=== PATIENT | male | born 1980 | race Caucasian/White ===

== ENCOUNTER 2018-08-27 11:11 | Inpatient (IN) | payer SELFPAY ==
[~2018-08-27] VITALS: Ht 170.2 cm; Wt 81.6 kg
--- NOTE | 2018-08-27 12:35 | PHYS DOC ---
Past Medical History Past Medical History: No Pertinent History Past Surgical History: No Surgical History Alcohol Use: None Drug Use: Marijuana Adult General Chief Complaint Chief Complaint: LOWER EXTREMITY SWELLING HPI HPI Patient is a 38 year old male who presents with history woke with right foot swelling and redness and pain that is stabbing in nature and then when he awoke this morning his left foot is now beginning to have swelling and some redness with tenderness and pain. Patient denies numbness or tingling. He takes no medications daily and receiving 8 out of 10. Review of Systems Review of Systems Constitutional: Denies fever or chills [] Eyes: Denies change in visual acuity, redness, or eye pain [] HENT: Denies nasal congestion or sore throat [] Respiratory: Denies cough or shortness of breath [] Cardiovascular: No additional information not addressed in HPI [] GI: Denies abdominal pain, nausea, vomiting, bloody stools or diarrhea [] : Denies dysuria or hematuria [] Musculoskeletal: Bilateral lower extremity swelling and redness. Denies back pain or joint pain [] Integument: Denies rash or skin lesions [] Neurologic: Denies headache, focal weakness or sensory changes [] All other systems were reviewed and found to be within normal limits, except as documented in this note. Current Medications Current Medications Current Medications Medications (Trade) Dose Ordered Sig/Aman Start Time Stop Time Status Last Admin Dose Admin Acetaminophen (Tylenol) 650 mg PRN Q4HRS PRN 08/27/18 15:45 UNV Albuterol Sulfate (Ventolin Neb Soln) 2.5 mg PRN Q4HRS PRN 08/27/18 15:45 UNV Ceftriaxone Sodium (Rocephin) 1 gm 1X ONCE 08/27/18 15:30 08/27/18 15:31 DC Clonidine HCl (Catapres) 0.1 mg PRN Q6HRS PRN 08/27/18 15:45 UNV Diphenhydramine HCl (Benadryl) 25 mg PRN Q4HRS PRN 08/27/18 15:45 UNV Docusate Sodium (Colace) 100 mg PRN BID PRN 08/27/18 15:45 UNV Enoxaparin Sodium (Lovenox 40mg Syringe) 40 mg DAILY 08/28/18 09:00 UNV Fentanyl Citrate (Fentanyl 2ml Vial) 50 mcg PRN Q1HR PRN 08/27/18 15:30 08/28/18 15:29 Ketorolac Tromethamine (Toradol 30mg Vial) 30 mg Q8H PRN 08/27/18 15:45 09/01/18 15:44 UNV Lorazepam (Ativan) 0.5 mg PRN Q4HRS PRN 08/27/18 15:45 UNV Ondansetron HCl (Zofran) 4 mg PRN Q4HRS PRN 08/27/18 15:45 UNV Piperacillin Sod/ Tazobactam Sod 3.375 gm/Sodium Chloride 50 ml @ 100 mls/hr Q8HRS 08/27/18 22:00 UNV Sodium Monofluorophosphate (Fleet Adult) 133 ml PRN DAILY PRN 08/27/18 15:45 UNV Vancomycin HCl (Vanco Per Pharmacy) 1 each PRN DAILY PRN 08/27/18 15:45 UNV Vancomycin HCl 1 gm/Dextrose 250 ml @ 250 mls/hr 1X ONCE 08/27/18 15:45 08/27/18 16:44 UNV Vancomycin HCl 2 gm/Sodium Chloride 500 ml @ 250 mls/hr 1X ONCE 08/27/18 16:00 08/27/18 17:59 Zolpidem Tartrate (Ambien) 5 mg PRN QHS PRN 08/27/18 15:45 UNV Allergies Allergies Allergies Coded Allergies Type Severity Reaction Last Updated Verified No Known Drug Allergies 08/27/18 No Physical Exam Physical Exam Constitutional: Well developed, well nourished, no acute distress, non-toxic appearance. [] HENT: Normocephalic, atraumatic, bilateral external ears normal, oropharynx moist, no oral exudates, nose normal. [] Eyes: PERRLA, EOMI, conjunctiva normal, no discharge. [] Neck: Normal range of motion, no tenderness, supple, no stridor. [] Cardiovascular:Heart rate regular rhythm, no murmur [] Lungs & Thorax: Bilateral breath sounds clear to auscultation [] Abdomen: Bowel sounds normal, soft, no tenderness, no masses, no pulsatile masses. [] Skin: Warm, dry, no erythema, no rash. [] Back: No tenderness, no CVA tenderness. [] Extremities: Bilateral lower pedal tenderness, no cyanosis, no clubbing, ROM intact, bilateral lower pedal edema. [] Neurologic: Alert and oriented X 3, normal motor function, normal sensory function, no focal deficits noted. [] Psychologic: Affect normal, judgement normal, mood normal. [] Current Patient Data Vital Signs Vital Signs Date Time Temp Pulse Resp B/P (MAP) Pulse Ox O2 Delivery O2 Flow Rate FiO2 08/27/18 14:56 80 123/65 (84) 96 Room Air 08/27/18 11:43 98.7 18 98.7 Lab Values Laboratory Tests Test 08/27/18 12:58 08/27/18 14:18 White Blood Count 12.7 x10^3/uL (4.0-11.0) H Red Blood Count 4.60 x10^6/uL (4.30-5.70) Hemoglobin 13.7 g/dL (13.0-17.5) Hematocrit 41.0 % (39.0-53.0) Mean Corpuscular Volume 89 fL (79-100) Mean Corpuscular Hemoglobin 30 pg (25-35) Mean Corpuscular Hemoglobin Concent 33 g/dL (31-37) Red Cell Distribution Width 13.3 % (11.5-14.5) Platelet Count 263 x10^3/uL (140-400) Neutrophils (%) (Auto) 74 % (31-73) H Lymphocytes (%) (Auto) 18 % (24-48) L Monocytes (%) (Auto) 7 % (0-9) Eosinophils (%) (Auto) 1 % (0-3) Basophils (%) (Auto) 0 % (0-3) Neutrophils # (Auto) 9.3 x10^3uL (1.8-7.7) H Lymphocytes # (Auto) 2.3 x10^3/uL (1.0-4.8) Monocytes # (Auto) 0.9 x10^3/uL (0.0-1.1) Eosinophils # (Auto) 0.1 x10^3/uL (0.0-0.7) Basophils # (Auto) 0.1 x10^3/uL (0.0-0.2) Sodium Level 140 mmol/L (136-145) Potassium Level 3.6 mmol/L (3.5-5.1) Chloride Level 100 mmol/L (98-107) Carbon Dioxide Level 32 mmol/L (21-32) Anion Gap 8 (6-14) Blood Urea Nitrogen 13 mg/dL (8-26) Creatinine 0.9 mg/dL (0.7-1.3) Estimated GFR (Cockcroft-Gault) 94.4 BUN/Creatinine Ratio 14 (6-20) Glucose Level 95 mg/dL (70-99) Lactic Acid Level 0.8 mmol/L (0.4-2.0) Calcium Level 9.4 mg/dL (8.5-10.1) Total Bilirubin 0.3 mg/dL (0.2-1.0) Aspartate Amino Transferase (AST) 16 U/L (15-37) Alanine Aminotransferase (ALT) 20 U/L (16-63) Alkaline Phosphatase 95 U/L (46-116) WO-Wsi-C-Type Natriuretic Peptide 8 pg/mL (0-124) Total Protein 8.2 g/dL (6.4-8.2) Albumin 3.9 g/dL (3.4-5.0) Albumin/Globulin Ratio 0.9 (1.0-1.7) L Urine Collection Type Unknown Urine Color Yellow Urine Clarity Cloudy Urine pH 7.0 Urine Specific [place] 1.010 Urine Protein Negative mg/dL (NEG-TRACE) Urine Glucose (UA) Negative mg/dL (NEG) Urine Ketones (Stick) Negative mg/dL (NEG) Urine Blood Trace (NEG) Urine Nitrite Negative (NEG) Urine Bilirubin Negative (NEG) Urine Urobilinogen Dipstick 0.2 mg/dL (0.2 mg/dL) Urine Leukocyte Esterase Moderate (NEG) Urine RBC 1-2 /HPF (0-2) Urine WBC >40 /HPF (0-4) Urine Bacteria Few /HPF (0-FEW) Urine Mucus Slight /LPF Urine Opiates Screen Neg (NEG) Urine Methadone Screen Neg (NEG) Urine Barbiturates Neg (NEG) Urine Phencyclidine Screen Neg (NEG) Urine Amphetamine/Methamphetamine Pos (NEG) Urine Benzodiazepines Screen Neg (NEG) Urine Cocaine Screen Neg (NEG) Urine Cannabinoids Screen Pos (NEG) Urine Ethyl Alcohol Neg (NEG) Laboratory Tests 08/27/18 12:58 Laboratory Tests 08/27/18 12:58 EKG EKG [] Radiology/Procedures Radiology/Procedures [] Impressions: [facility] [id number] [place] [address] IMAGING REPORT Signed PATIENT: HALEY KEMP ACCOUNT: [id number] : 1980 LOCATION: ER AGE: 38 SEX: M EXAM STATUS: REG ER ORD. PHYSICIAN: RICKY MAHAN APRN REASON: pain, swelling, redness PROCEDURE: FOOT BILAT 3V 3 views of each foot 08/27/2018 12:36 PM Indication: bilateral feet redness and swelling, no injury Comparison: None Findings: There is no acute fracture or dislocation. Articular surfaces are uninterrupted. Soft tissue edema is noted about the mid and distal foot, right greater than left. Impression: Soft tissue edema involving the bilateral feet as described without evidence of acute osseous abnormality. Electronically signed by: Alonso Stone MD (08/27/2018 1:00 PM) [id number] DICTATED and SIGNED BY: ALONSO STONE MD DATE: 08/27/[id number] [id number] IMAGING REPORT Signed PATIENT: HALEY KEMP ACCOUNT: [id number] : 1980 LOCATION: ER AGE: 38 SEX: M EXAM STATUS: REG ER ORD. PHYSICIAN: RICKY MAHAN APRN REASON: pain, swelling and redness PROCEDURE: VENOUS LOWER EXT BILATERAL Bilateral lower extremity venous ultrasound HISTORY: Bilateral leg pain, swelling and redness. TECHNIQUE: Grayscale, color Doppler and spectral waveform analysis. FINDINGS: Right and left lower extremity femoral-popliteal veins appear patent with normal compressibility and response to augmentation. Visualized calf veins are patent. IMPRESSION: Negative for right or left leg deep venous sclerosis. Electronically signed by: Jose Ulrich MD (08/27/2018 1:22 PM) [id number] DICTATED and SIGNED BY: JOSE ULRICH MD DATE: 08/27/18 1321 Course & Med Decision Making Course & Med Decision Making Patient is a 38 year old male who presents with history woke with right foot swelling and redness and pain that is stabbing in nature and then when he awoke this morning his left foot is now beginning to have swelling and some redness with tenderness and pain. Patient denies numbness or tingling. He takes no medications daily and receiving 8 out of 10. Alert and oriented. Skin pink warm and dry. Lungs clear to auscultation all lobes. Vital signs are within normal limits. Patient's right foot is 2-3+ edema and is red and warm to touch. It is also tender to touch. Left foot is 1-2+ edema with redness starting is also tender to touch. I can feel a slight pulse in this foot Refill is less than 3 seconds. The right foot because of swelling at cannot feel a pulse but a Refill is less than 3 seconds. Have ordered Doppler ultrasound for both lower extremities and x-rays. It is membranes are moist. Heart regular without murmur. Patient denies any past medical history and he states he takes no medications and states he did not take any pain medications today. 1325: Bilateral feet x-ray and bilateral lower extremity ultrasound shows no acute findings. Blood work is unremarkable besides white blood cell count is 12.7. Urine shows urinary tract infection and is positive for marijuana and methamphetamines. I have asked the patient about methamphetamines and acetaminophen he had been using a needle to inject methamphetamine and any veins in his foot and he states now he does not like needles. Patient and ex are in agreement to stay for antibiotics. 1533: I have spoken to Dr Gamez for admission. Latha Disclaimer Latha Disclaimer This electronic medical record was generated, in whole or in part, using a voice recognition dictation system. Departure Departure Impression: Primary Impression: Cellulitis Disposition: ADMITTED INPATIENT Admitting Physician: Other Condition: STABLE Referrals: NO PCP (PCP) Problem Qualifiers Primary Impression: Cellulitis Site of cellulitis: extremity Site of cellulitis of extremity: lower extremity Laterality: right Qualified Codes: L03.115 - Cellulitis of right lower limb RICKY MAHAN APRN Aug 27, 2018 12:35
--- NOTE | 2018-08-27 13:03 | RAD ---
3 views of each foot 08/27/2018 12:36 PM Indication: bilateral feet redness and swelling, no injury Comparison: None Findings: There is no acute fracture or dislocation. Articular surfaces are uninterrupted. Soft tissue edema is noted about the mid and distal foot, right greater than left. Impression: Soft tissue edema involving the bilateral feet as described without evidence of acute osseous abnormality. Electronically signed by: Alonso Powell MD (08/27/2018 1:00 PM) [id number]
[2018-08-27 13:17] LABS: BASO # 0.1 x10^3/uL (0.0-0.2); BASO % 0 % (0-3); EOS # 0.1 x10^3/uL (0.0-0.7); EOS % 1 % (0-3); HEMOGLOBIN 13.7 g/dL (13.0-17.5); LYMPH # 2.3 x10^3/uL (1.0-4.8); LYMPH % 18 % (24-48); MEAN CORPUSCULAR HEMOGLOBIN 30 pg (25-35); MEAN CORPUSCULAR HGB CONC 33 g/dL (31-37); MEAN CORPUSCULAR VOLUME 89 fL (79-100); MONO # 0.9 x10^3/uL (0.0-1.1); MONO % 7 % (0-9); NEUT # 9.3 x10^3uL (1.8-7.7); NEUT % 74 % (31-73); PLATELET COUNT 263 x10^3/uL (140-400); RED CELL DISTRIBUTION WIDTH 13.3 % (11.5-14.5); WHITE BLOOD COUNT 12.7 x10^3/uL (4.0-11.0)
[2018-08-27 13:18] LABS: CALCIUM 9.4 mg/dL (8.5-10.1); CREATININE 0.9 mg/dL (0.7-1.3); GFR 94.4; POTASSIUM 3.6 mmol/L (3.5-5.1)
[2018-08-27 13:23] LABS: ALBUMIN 3.9 g/dL (3.4-5.0); ALBUMIN/GLOBULIN RATIO 0.9 (1.0-1.7); TOTAL BILIRUBIN 0.3 mg/dL (0.2-1.0); TOTAL PROTEIN 8.2 g/dL (6.4-8.2)
--- NOTE | 2018-08-27 13:25 | RAD ---
Bilateral lower extremity venous ultrasound HISTORY: Bilateral leg pain, swelling and redness. TECHNIQUE: Grayscale, color Doppler and spectral waveform analysis. FINDINGS: Right and left lower extremity femoral-popliteal veins appear patent with normal compressibility and response to augmentation. Visualized calf veins are patent. IMPRESSION: Negative for right or left leg deep venous sclerosis. Electronically signed by: Jose Ulrich MD (08/27/2018 1:22 PM) [id number]
[2018-08-27] MEDS ORDERED: fentaNYL PF VIAL 100 MCG/2 ML VIAL IV ONE (13:30)
[2018-08-27 14:25] LABS: BILIRUBIN,URINE NEGATIVE (NEG); CLARITY,URINE CLOUDY; COLOR,URINE YELLOW; NITRITE,URINE NEGATIVE (NEG); PROTEIN,URINE NEGATIVE (NEG-TRACE); UROBILINOGEN,URINE 0.2 mg/dL (0.2 mg/dL)
[2018-08-27 14:33] LABS: AMPHETAMINE/METHAMPHETAMINE POS (NEG); BARBITURATES NEG (NEG); BENZODIAZEPINES NEG (NEG); CANNABINOIDS POS (NEG); COCAINE NEG (NEG); METHADONE NEG (NEG); OPIATES NEG (NEG); PHENCYCLIDINE NEG (NEG)
[2018-08-27 14:51] LABS: BACTERIA,URINE FEW /HPF (0-FEW); WBC,URINE >40 /HPF (0-4)
[2018-08-27] MEDS ORDERED: VANCOMYCIN PER PHARMACY MC PRN ×2 (15:30→15:45)
[2018-08-27] MEDS ORDERED: cefTRIAXone IV Push 1 GM VIAL. IVP ONE (15:30)
[2018-08-27] MEDS ORDERED: ONDANSETRON PF 4 MG/2 ML VIAL. IV PRN ×2 (15:30→15:45)
[2018-08-27] MEDS ORDERED: ACETAMINOPHEN 325 MG TABLET. PO PRN ×2 (15:30→15:45)
[2018-08-27] MEDS ORDERED: fentaNYL PF VIAL 100 MCG/2 ML VIAL IV PRN (15:30)
[2018-08-27] MEDS ORDERED: diphenhydrAMINE 50 MG/ML VIAL IVP PRN (15:45)
[2018-08-27] MEDS ORDERED: cloNIDine HCL 0.1 MG TABLET PO PRN (15:45)
[2018-08-27] MEDS ORDERED: DOCUSATE SODIUM 100 MG CAPSULE. PO PRN (15:45)
[2018-08-27] MEDS ORDERED: KETOROLAC 30 MG/ML VIAL. IV PRN (15:45)
[2018-08-27] MEDS ORDERED: SODIUM PHOSPHATES 19/7GM 133 ML ENEMA. PR PRN (15:45)
[2018-08-27] MEDS ORDERED: ZOLPIDEM 5 MG TABLET. PO PRN (15:45)
[2018-08-27] MEDS ORDERED: ALBUTEROL SULFATE 2.5 MG/3 ML NEBU. NEB PRN (15:45)
[2018-08-27] MEDS ORDERED: LORazepam 0.5 MG TABLET PO PRN (15:45)
[2018-08-27] MEDS ORDERED: VANCOMYCIN 1 GM in IV DEXTROSE 5% 250 ML IV ONE (15:45)
[2018-08-27] MEDS ORDERED: VANCOMYCIN 2 GM in IV NORMAL SALINE 500ML BAG 500 ML IV ONE (16:00)
[2018-08-27 17:13] VITALS: BP 113/80
--- NOTE | 2018-08-27 17:40 | PDOC1 ---
History and Physical Date of Admission Date of Admission 08/27/2018 Identification/Chief Complaint Chief Complaint My foot hurts Source Source: Chart review, Patient History of Present Illness History of Present Illness Patient is a 38 year old male with no past medical history fwhoi was evluated in the ER sand found to have a right foot cellulitis, patient denies history of trauma no recent changes to his shoes, history is somewhat limited since thue patient is a very poor historyian and his ex is in the room as well. Unable to assess if the patient has used IV drugs as a point of entry, he has positive UDP for amphetamines and marihuana. History is limited due to the presence of his ex at bedside. Patient denies fever chills no recent illness, no sick contacts, he does not have animals at home, He denies travels outside the area or overseas. Patient at the time of my interview is in no apparent distress, plan of care explained in detail I have answered all concerns to the best of my abilities. Discussed findings on work up done in the ED including imaging studies done ER note Patient is a 38 year old male who presents with history woke with right foot swelling and redness and pain that is stabbing in nature and then when he awoke this morning his left foot is now beginning to have swelling and some redness with tenderness and pain. Patient denies numbness or tingling. He takes no medications daily and receiving 8 out of 10. Alert and oriented. Skin pink warm and dry. Lungs clear to auscultation all lobes. Vital signs are within normal limits. Patient's right foot is 2-3+ edema and is red and warm to touch. It is also tender to touch. Left foot is 1-2+ edema with redness starting is also tender to touch. I can feel a slight pulse in this foot Refill is less than 3 seconds. The right foot because of swelling at cannot feel a pulse but a Refill is less than 3 seconds. Have ordered Doppler ultrasound for both lower extremities and x-rays. It is membranes are moist. Heart regular without murmur. Patient denies any past medical history and he states he takes no medications and states he did not take any pain medications today. 1325: Bilateral feet x-ray and bilateral lower extremity ultrasound shows no acute findings. Blood work is unremarkable besides white blood cell count is 12.7. Urine shows urinary tract infection and is positive for marijuana and methamphetamines. I have asked the patient about methamphetamines and acetaminophen he had been using a needle to inject methamphetamine and any veins in his foot and he states now he does not like needles. Patient and ex are in agreement to stay for antibiotics. 1533: I have spoken to Dr Johnson for admission. Past Medical History Cardiovascular: No pertinent hx Pulmonary: No pertinent hx GI: No pertinent hx Heme/Onc: No pertinent hx Hepatobiliary: No pertinent hx Psych: No pertinent hx Rheumatologic: No pertinent hx Infectious disease: No pertinent hx ENT: No pertinent hx Renal/: No pertinent hx Endocrine: No pertinent hx Dermatology: No pertinent hx Past Surgical History Past Surgical History: No pertinent history Family History Family History: Coronary Artery Disease Family History: Parent Social History Smoke: No ALCOHOL: none Drugs: Marijuana, Crystal meth Current Problem List Problem List Problems Medical Problems: (1) Cellulitis Status: Acute Current Medications Current Medications Current Medications Medications (Trade) Dose Ordered Sig/Aman Start Time Stop Time Status Last Admin Dose Admin Acetaminophen (Tylenol) 650 mg PRN Q4HRS PRN 08/27/18 15:45 Albuterol Sulfate (Ventolin Neb Soln) 2.5 mg PRN Q4HRS PRN 08/27/18 15:45 Ceftriaxone Sodium (Rocephin) 1 gm 1X ONCE 08/27/18 15:30 08/27/18 15:31 DC 08/27/18 15:58 1 GM Clonidine HCl (Catapres) 0.1 mg PRN Q6HRS PRN 08/27/18 15:45 Diphenhydramine HCl (Benadryl) 25 mg PRN Q4HRS PRN 08/27/18 15:45 Docusate Sodium (Colace) 100 mg PRN BID PRN 08/27/18 15:45 Enoxaparin Sodium (Lovenox 40mg Syringe) 40 mg DAILY 08/28/18 09:00 Fentanyl Citrate (Fentanyl 2ml Vial) 50 mcg PRN Q1HR PRN 08/27/18 15:30 08/28/18 15:29 Ketorolac Tromethamine (Toradol 30mg Vial) 30 mg PRN Q8HRS PRN 08/27/18 15:45 09/01/18 15:44 Lorazepam (Ativan) 0.5 mg PRN Q4HRS PRN 08/27/18 15:45 Ondansetron HCl (Zofran) 4 mg PRN Q4HRS PRN 08/27/18 15:45 Piperacillin Sod/ Tazobactam Sod 3.375 gm/Sodium Chloride 50 ml @ 100 mls/hr Q8HRS 08/27/18 22:00 Sodium Monofluorophosphate (Fleet Adult) 133 ml PRN DAILY PRN 08/27/18 15:45 Vancomycin HCl (Vanco Per Pharmacy) 1 each PRN DAILY PRN 08/27/18 15:45 Vancomycin HCl 1 gm/Dextrose 250 ml @ 250 mls/hr 1X ONCE 08/27/18 15:45 08/27/18 16:08 DC Vancomycin HCl 2 gm/Sodium Chloride 500 ml @ 250 mls/hr 1X ONCE 08/27/18 16:00 08/27/18 17:59 08/27/18 15:59 250 MLS/HR Zolpidem Tartrate (Ambien) 5 mg PRN QHS PRN 08/27/18 15:45 Allergies Allergies Allergies Coded Allergies Type Severity Reaction Last Updated Verified No Known Drug Allergies 08/27/18 No ROS Review of System CONSTITUTIONAL: No fever or chills EYES: No recent changes SKIN: No rash or itching CARDIOVASCULAR: No chest pain, syncope, palpitations, or edema RESPIRATORY: No SOB or cough GASTROINTESTINAL: No nausea, vomiting or abdominal pain NEUROLOGICAL: No headaches or weakness ENDOCRINE: No cold or heat intolerance GENITOURINARY: No urgency or frequency of urination MUSCULOSKELETAL: No back pain or joint pain LYMPHATICS: No enlarged lymph nodes PSYCHIATRIC: No anxiety or depression Physical Exam Physical Exam GEN.: No apparent distress. Alert and oriented. HEENT: Head is normocephalic, atraumatic NECK: Supple. LUNGS: Clear to auscultation. HEART: RRR, S1, S2 present. Peripheral pulses intact ABDOMEN: Soft, nontender. Positive bowel sounds. EXTREMITIES: Without any cyanosis. NEUROLOGIC: Normal speech, normal tone PSYCHIATRIC: Normal affect, normal mood. SKIN: No ulcerations, erythema over the right and left lower extremity at the level of the ankle, 1+ edema Vitals Vitals Vital Signs Date Time Temp Pulse Resp B/P (MAP) Pulse Ox O2 Delivery O2 Flow Rate FiO2 08/27/18 17:13 98.0 80 18 113/80 (91) 98 Room Air 98.0 Labs Labs Laboratory Tests Test 08/27/18 12:58 08/27/18 14:18 White Blood Count 12.7 x10^3/uL (4.0-11.0) Red Blood Count 4.60 x10^6/uL (4.30-5.70) Hemoglobin 13.7 g/dL (13.0-17.5) Hematocrit 41.0 % (39.0-53.0) Mean Corpuscular Volume 89 fL (79-100) Mean Corpuscular Hemoglobin 30 pg (25-35) Mean Corpuscular Hemoglobin Concent 33 g/dL (31-37) Red Cell Distribution Width 13.3 % (11.5-14.5) Platelet Count 263 x10^3/uL (140-400) Neutrophils (%) (Auto) 74 % (31-73) Lymphocytes (%) (Auto) 18 % (24-48) Monocytes (%) (Auto) 7 % (0-9) Eosinophils (%) (Auto) 1 % (0-3) Basophils (%) (Auto) 0 % (0-3) Neutrophils # (Auto) 9.3 x10^3uL (1.8-7.7) Lymphocytes # (Auto) 2.3 x10^3/uL (1.0-4.8) Monocytes # (Auto) 0.9 x10^3/uL (0.0-1.1) Eosinophils # (Auto) 0.1 x10^3/uL (0.0-0.7) Basophils # (Auto) 0.1 x10^3/uL (0.0-0.2) Sodium Level 140 mmol/L (136-145) Potassium Level 3.6 mmol/L (3.5-5.1) Chloride Level 100 mmol/L (98-107) Carbon Dioxide Level 32 mmol/L (21-32) Anion Gap 8 (6-14) Blood Urea Nitrogen 13 mg/dL (8-26) Creatinine 0.9 mg/dL (0.7-1.3) Estimated GFR (Cockcroft-Gault) 94.4 BUN/Creatinine Ratio 14 (6-20) Glucose Level 95 mg/dL (70-99) Lactic Acid Level 0.8 mmol/L (0.4-2.0) Calcium Level 9.4 mg/dL (8.5-10.1) Total Bilirubin 0.3 mg/dL (0.2-1.0) Aspartate Amino Transf (AST/SGOT) 16 U/L (15-37) Alanine Aminotransferase (ALT/SGPT) 20 U/L (16-63) Alkaline Phosphatase 95 U/L (46-116) QC-Hdd-I-Type Natriuretic Peptide 8 pg/mL (0-124) Total Protein 8.2 g/dL (6.4-8.2) Albumin 3.9 g/dL (3.4-5.0) Albumin/Globulin Ratio 0.9 (1.0-1.7) Urine Collection Type Unknown Urine Color Yellow Urine Clarity Cloudy Urine pH 7.0 Urine Specific [place] 1.010 Urine Protein Negative mg/dL (NEG-TRACE) Urine Glucose (UA) Negative mg/dL (NEG) Urine Ketones (Stick) Negative mg/dL (NEG) Urine Blood Trace (NEG) Urine Nitrite Negative (NEG) Urine Bilirubin Negative (NEG) Urine Urobilinogen Dipstick 0.2 mg/dL (0.2 mg/dL) Urine Leukocyte Esterase Moderate (NEG) Urine RBC 1-2 /HPF (0-2) Urine WBC >40 /HPF (0-4) Urine Bacteria Few /HPF (0-FEW) Urine Mucus Slight /LPF Urine Opiates Screen Neg (NEG) Urine Methadone Screen Neg (NEG) Urine Barbiturates Neg (NEG) Urine Phencyclidine Screen Neg (NEG) Urine Amphetamine/Methamphetamine Pos (NEG) Urine Benzodiazepines Screen Neg (NEG) Urine Cocaine Screen Neg (NEG) Urine Cannabinoids Screen Pos (NEG) Urine Ethyl Alcohol Neg (NEG) Laboratory Tests Test 08/27/18 12:58 08/27/18 14:18 White Blood Count 12.7 x10^3/uL (4.0-11.0) Red Blood Count 4.60 x10^6/uL (4.30-5.70) Hemoglobin 13.7 g/dL (13.0-17.5) Hematocrit 41.0 % (39.0-53.0) Mean Corpuscular Volume 89 fL (79-100) Mean Corpuscular Hemoglobin 30 pg (25-35) Mean Corpuscular Hemoglobin Concent 33 g/dL (31-37) Red Cell Distribution Width 13.3 % (11.5-14.5) Platelet Count 263 x10^3/uL (140-400) Neutrophils (%) (Auto) 74 % (31-73) Lymphocytes (%) (Auto) 18 % (24-48) Monocytes (%) (Auto) 7 % (0-9) Eosinophils (%) (Auto) 1 % (0-3) Basophils (%) (Auto) 0 % (0-3) Neutrophils # (Auto) 9.3 x10^3uL (1.8-7.7) Lymphocytes # (Auto) 2.3 x10^3/uL (1.0-4.8) Monocytes # (Auto) 0.9 x10^3/uL (0.0-1.1) Eosinophils # (Auto) 0.1 x10^3/uL (0.0-0.7) Basophils # (Auto) 0.1 x10^3/uL (0.0-0.2) Sodium Level 140 mmol/L (136-145) Potassium Level 3.6 mmol/L (3.5-5.1) Chloride Level 100 mmol/L (98-107) Carbon Dioxide Level 32 mmol/L (21-32) Anion Gap 8 (6-14) Blood Urea Nitrogen 13 mg/dL (8-26) Creatinine 0.9 mg/dL (0.7-1.3) Estimated GFR (Cockcroft-Gault) 94.4 BUN/Creatinine Ratio 14 (6-20) Glucose Level 95 mg/dL (70-99) Lactic Acid Level 0.8 mmol/L (0.4-2.0) Calcium Level 9.4 mg/dL (8.5-10.1) Total Bilirubin 0.3 mg/dL (0.2-1.0) Aspartate Amino Transf (AST/SGOT) 16 U/L (15-37) Alanine Aminotransferase (ALT/SGPT) 20 U/L (16-63) Alkaline Phosphatase 95 U/L (46-116) JE-Qgy-G-Type Natriuretic Peptide 8 pg/mL (0-124) Total Protein 8.2 g/dL (6.4-8.2) Albumin 3.9 g/dL (3.4-5.0) Albumin/Globulin Ratio 0.9 (1.0-1.7) Urine Collection Type Unknown Urine Color Yellow Urine Clarity Cloudy Urine pH 7.0 Urine Specific [place] 1.010 Urine Protein Negative mg/dL (NEG-TRACE) Urine Glucose (UA) Negative mg/dL (NEG) Urine Ketones (Stick) Negative mg/dL (NEG) Urine Blood Trace (NEG) Urine Nitrite Negative (NEG) Urine Bilirubin Negative (NEG) Urine Urobilinogen Dipstick 0.2 mg/dL (0.2 mg/dL) Urine Leukocyte Esterase Moderate (NEG) Urine RBC 1-2 /HPF (0-2) Urine WBC >40 /HPF (0-4) Urine Bacteria Few /HPF (0-FEW) Urine Mucus Slight /LPF Urine Opiates Screen Neg (NEG) Urine Methadone Screen Neg (NEG) Urine Barbiturates Neg (NEG) Urine Phencyclidine Screen Neg (NEG) Urine Amphetamine/Methamphetamine Pos (NEG) Urine Benzodiazepines Screen Neg (NEG) Urine Cocaine Screen Neg (NEG) Urine Cannabinoids Screen Pos (NEG) Urine Ethyl Alcohol Neg (NEG) Images Images PATIENT: HALEY KEMP ACCOUNT: [id number] : 1980 LOCATION: ER AGE: 38 SEX: M EXAM STATUS: REG ER ORD. PHYSICIAN: RICKY MAHAN APRN REASON: pain, swelling and redness PROCEDURE: VENOUS LOWER EXT BILATERAL Bilateral lower extremity venous ultrasound HISTORY: Bilateral leg pain, swelling and redness. TECHNIQUE: Grayscale, color Doppler and spectral waveform analysis. FINDINGS: Right and left lower extremity femoral-popliteal veins appear patent with normal compressibility and response to augmentation. Visualized calf veins are patent. IMPRESSION: Negative for right or left leg deep venous sclerosis. Electronically signed by: Jose Ulrich MD (08/27/2018 1:22 PM) [facility] DICTATED and SIGNED BY: JOSE ULRICH MD DATE: 08/27/18 1321 Signed PATIENT: HALEY KEMP ACCOUNT: [id number] : 1980 LOCATION: ER AGE: 38 SEX: M EXAM STATUS: REG ER ORD. PHYSICIAN: BAFUS,RICKY M EXHAUST MACHINE OPERATOR REASON: pain, swelling, redness PROCEDURE: FOOT BILAT 3V 3 views of each foot 08/27/2018 12:36 PM Indication: bilateral feet redness and swelling, no injury Comparison: None Findings: There is no acute fracture or dislocation. Articular surfaces are uninterrupted. Soft tissue edema is noted about the mid and distal foot, right greater than left. Impression: Soft tissue edema involving the bilateral feet as described without evidence of acute osseous abnormality. Electronically signed by: Alonso Stone MD (08/27/2018 1:00 PM) [facility] DICTATED and SIGNED BY: ALONSO STONE MD DATE: 08/27/18 1258 VTE Prophylaxis Ordered VTE Prophylaxis Devices: No VTE Pharmacological Prophylaxi: Yes Assessment/Plan Assessment/Plan Bilateral lower extremity cellulitis Leukocytosis due to the above Polysubstance abuse Plan: broad spectrum antibiotics will do MRSA screen reassess in the am labs in am further recommendations based on clinical course. TIARA JOHNSON MD Aug 27, 2018 17:40
--- NOTE | 2018-08-27 18:26 | NUR ---
Pharmacy Vancomycin Dosing Note S:Consulted to monitor and dose vancomycin started 08/27/18. O:VIRIDIANAHALEY is a 38 year old M with Cellulitis . Height: 5 feet, 7 inches Weight: 81.015621 kg [place] Body Weight: 66.10 Adjusted Body Weight: 72.30 Dosing Weight: Actual Other Antibiotics: Zosyn LABS: Last BUN: 13 Last Creatinine: 0.9 Creatinine Clearance: 113.8 mL/min Last WBC: 12.7 Last Procalcitonin: Tmax (past 24 hours): 98.7 Microbiology: I/O: Drug Levels: Last level: on at Last dose given 08/27/18 at 1559 Vancomycin Dosing: Loading Dose: 2000 mg x1 Dosing Weight: Actual Target Trough: 10-20 A: Based on weight and est. CrCl: P: 1. Vancomycin 2000mg, followed by Vancomycin 1250 mg IV q8h. 2. Follow up Trough level on 08/28/18 at 1530. 3. Pharmacy will continue to monitor, follow and adjust therapy as needed. Zbigniew Shook [facility], 08/27/18 1590
[2018-08-27 19:00] VITALS: BP 124/67
--- NOTE | 2018-08-27 20:36 | NUR ---
Pt. came up from ED on bed. Pt. transferred to unit bed and made comfortable. came up to see pt. This nurse oriented pt. to unit activities, hospital policies, and room. Head to toe assessment and admission interventions completed. Pt. stated that he wanted to be a DNR. This nurse talked through with pt. what this means and In the pt. own words he said "my time is up". This nurse checked with pt. again before calling the Dr. and pt. stated "if it is my time, then it is my time." Dr. Gamez was paged and spoke with this nurse. Orders were received and placed in the computer. Will continue to monitor pt.
[2018-08-27] MEDS: PIPERACILLIN/TAZOBACTAM 3.375 GM in IV NORMAL SALINE 50ML 50 ML IV SCH (22:21)
[2018-08-27 23:00] VITALS: BP 113/62
[2018-08-28] MEDS ORDERED: VANCOMYCIN 1.25 GM in IV NORMAL SALINE 250ML 250 ML IV SCH ×2
[2018-08-28 03:00] VITALS: BP 105/65
[2018-08-28] MEDS: PIPERACILLIN/TAZOBACTAM 3.375 GM in IV NORMAL SALINE 50ML 50 ML IV SCH (06:18)
[2018-08-28 07:00] VITALS: BP 113/60
[2018-08-28] MEDS ORDERED: ENOXAPARIN 40 MG/0.4 ML SYRINGE. SQ SCH (09:00)
[2018-08-28] MEDS ORDERED: DOXYCYCLINE HYCLATE 100 MG TABLET PO SCH (09:00)
[2018-08-28] MEDS ORDERED: CEFDINIR 300 MG CAPSULE PO SCH (09:00)
[2018-08-28] MEDS ORDERED: NICOTINE 21MG PATCH. TD SCH (09:00)
--- NOTE | 2018-08-28 10:59 | NUR ---
SW following. Discussed with RN, pt is self pay. PAT team consulted for positive drug test of Meth and Marijuana. SW will continue to follow. RN notified.
--- NOTE | 2018-08-28 12:42 | NUR ---
SW following. PAT team met with pt, pt denied Meth use, uses Marijuana regularly for anxiety. PAT team gave resources for [facility] and [facility]. SW met with pt to give self pay resources, pt denied any further SW needs. RN notified.
[2018-08-28 15:04] VITALS: BP 99/56
[2018-08-28] MEDS ORDERED: LACT1CAP19 PO (16:57)
[2018-08-28] MEDS ORDERED: DOXY100T PO (16:57)
[2018-08-28] MEDS ORDERED: CEFD300C PO (16:57)
--- NOTE | 2018-08-28 17:17 | PDOC3 ---
Discharge Summary Visit Information Date of Admission: Aug 27, 2018 Date of Discharge: Aug 28, 2018 Admitting Diagnosis: cellulitis Final Diagnosis Bilateral lower extremity cellulitis Polysubstance abuse tobaccon abuse Brief Hospital Course Allergies Allergies Coded Allergies Type Severity Reaction Last Updated Verified No Known Drug Allergies 08/27/18 No Vital Signs Vital Signs Date Time Temp Pulse Resp B/P (MAP) Pulse Ox O2 Delivery O2 Flow Rate FiO2 08/28/18 15:04 98.1 93 16 99/56 (70) 93 Room Air 98.1 Lab Results Laboratory Tests Test 08/27/18 12:58 08/27/18 14:18 White Blood Count 12.7 x10^3/uL (4.0-11.0) Red Blood Count 4.60 x10^6/uL (4.30-5.70) Hemoglobin 13.7 g/dL (13.0-17.5) Hematocrit 41.0 % (39.0-53.0) Mean Corpuscular Volume 89 fL (79-100) Mean Corpuscular Hemoglobin 30 pg (25-35) Mean Corpuscular Hemoglobin Concent 33 g/dL (31-37) Red Cell Distribution Width 13.3 % (11.5-14.5) Platelet Count 263 x10^3/uL (140-400) Neutrophils (%) (Auto) 74 % (31-73) Lymphocytes (%) (Auto) 18 % (24-48) Monocytes (%) (Auto) 7 % (0-9) Eosinophils (%) (Auto) 1 % (0-3) Basophils (%) (Auto) 0 % (0-3) Neutrophils # (Auto) 9.3 x10^3uL (1.8-7.7) Lymphocytes # (Auto) 2.3 x10^3/uL (1.0-4.8) Monocytes # (Auto) 0.9 x10^3/uL (0.0-1.1) Eosinophils # (Auto) 0.1 x10^3/uL (0.0-0.7) Basophils # (Auto) 0.1 x10^3/uL (0.0-0.2) Sodium Level 140 mmol/L (136-145) Potassium Level 3.6 mmol/L (3.5-5.1) Chloride Level 100 mmol/L (98-107) Carbon Dioxide Level 32 mmol/L (21-32) Anion Gap 8 (6-14) Blood Urea Nitrogen 13 mg/dL (8-26) Creatinine 0.9 mg/dL (0.7-1.3) Estimated GFR (Cockcroft-Gault) 94.4 BUN/Creatinine Ratio 14 (6-20) Glucose Level 95 mg/dL (70-99) Lactic Acid Level 0.8 mmol/L (0.4-2.0) Calcium Level 9.4 mg/dL (8.5-10.1) Total Bilirubin 0.3 mg/dL (0.2-1.0) Aspartate Amino Transf (AST/SGOT) 16 U/L (15-37) Alanine Aminotransferase (ALT/SGPT) 20 U/L (16-63) Alkaline Phosphatase 95 U/L (46-116) VM-Nrb-H-Type Natriuretic Peptide 8 pg/mL (0-124) Total Protein 8.2 g/dL (6.4-8.2) Albumin 3.9 g/dL (3.4-5.0) Albumin/Globulin Ratio 0.9 (1.0-1.7) Urine Collection Type Unknown Urine Color Yellow Urine Clarity Cloudy Urine pH 7.0 Urine Specific [place] 1.010 Urine Protein Negative mg/dL (NEG-TRACE) Urine Glucose (UA) Negative mg/dL (NEG) Urine Ketones (Stick) Negative mg/dL (NEG) Urine Blood Trace (NEG) Urine Nitrite Negative (NEG) Urine Bilirubin Negative (NEG) Urine Urobilinogen Dipstick 0.2 mg/dL (0.2 mg/dL) Urine Leukocyte Esterase Moderate (NEG) Urine RBC 1-2 /HPF (0-2) Urine WBC >40 /HPF (0-4) Urine Bacteria Few /HPF (0-FEW) Urine Mucus Slight /LPF Urine Opiates Screen Neg (NEG) Urine Methadone Screen Neg (NEG) Urine Barbiturates Neg (NEG) Urine Phencyclidine Screen Neg (NEG) Urine Amphetamine/Methamphetamine Pos (NEG) Urine Benzodiazepines Screen Neg (NEG) Urine Cocaine Screen Neg (NEG) Urine Cannabinoids Screen Pos (NEG) Urine Ethyl Alcohol Neg (NEG) Brief Hospital Course Mr. Lebron is a 38 old male who presented with cellulitic changes over this bilateral lower extremities and he was admitted at the request of the er for iv antibiotic therapy,. He responded quickly to the therapy and was transitioned to oral antibiotics. He tolerated the oral antibiotics well and was deemed appropriate for discharge. Signs and symptoms of alarm discussed with the patient prior to discharge. All concerns addressed to the best of my abilities. Discharge Information Condition at Discharge: Improved Follow Up: Weeks (1 week with primary care physician) Disposition/Orders: D/C to Home Scheduled Cefdinir (Cefdinir) 300 Mg Capsule, 300 MG PO BID for cellulitis for 7 Days, #14 Prescribed by: TIARA JOHNSON MD on 08/28/181656 Doxycycline Hyclate (Doxycycline Hyclate) 100 Mg Tablet, 100 MG PO BID for cellulitis for 7 Days, #14 Prescribed by: TIARA JOHNSON MD on 08/28/181656 Lactobacillus Rhamnosus Gg (Culturelle) 1 Each Cap.sprink, 1 CAP PO BID for probiotic for 14 Days, #28 Prescribed by: TIARA JOHNSON MD on 08/28/18 165 TIARA JOHNSON MD Aug 28, 2018 17:17
--- NOTE | 2018-08-28 18:15 | NUR ---
Discharge Note: HALEY KEMP [address] Discharge instructions and discharge home medications reviewed with Patient and a copy given. All questions have been answered and understanding verbalized. The following instructions and handouts were given: Cellulitis Discontinued lines and drains: NO IV Patient discharged to home for self-care, with meds to sisal picker at [facility] in [place], [place]. Pt ambulated to exit w/PHILLY Schultz
[2018-08-28] MEDS ORDERED: LACTOBACILLUS RHAMNOSUS GG 1 CAPSULE. PO SCH (21:00)
== END 2018-08-28 18:54 | disposition home or self-care (01) | DRG 603 ==
LOC: ER 11:11 → 5 SOUTH 15:24
PROVIDERS: ADMIT Internal Medicine; ATTEND Internal Medicine
DX: L03.116 Cellulitis of left lower limb (principal); N39.0 Urinary tract infection, site not specified; L03.115 Cellulitis of right lower limb; F19.10 Other psychoactive substance abuse, uncomplicated; F12.90 Cannabis use, unspecified, uncomplicated; Z82.49 Family history of ischemic heart disease and other diseases of the circulatory system
CPT/HCPCS: 36415; 73630; 80053; 80307; 81001; 83605; 83880; 85025; 87040; 87086; 93970; 94640; 96374; 96375; 99406; J0696; J1650; J2543; J3010; J3370; J7040; J7050; 99285-25; J7030